=== PATIENT | male | born 1990 | race Caucasian/White ===

== ENCOUNTER 2020-11-03 08:58 | Emergency (ER) | payer SELFPAY ==
[2020-11-03] MEDS ORDERED: NA CHLORIDE 0.9% 1,000 ML ONE ×2 (09:48→11:33)
[2020-11-03] MEDS ORDERED: KETOROLAC 30 MG/ML INJ ONE (09:48)
[2020-11-03 10:04] LABS: Absolute Lymphocytes (CBC) 1.8 K/uL (0.7-4.9); Basophils % 0.5 % (0-1.3); Hematocrit 42.4 % (39.6-49.0); Lymphocytes % 13.2 % (15.3-44.8); MPV 8.4 fL (7.6-11.3); RBC Red Blood Cell Count 4.66 M/uL (4.33-5.43)
[2020-11-03 10:22] LABS: ALT/SGPT 30 U/L (12-78); AST/SGOT 28 U/L (15-37); Albumin 4.1 g/dL (3.4-5.0); Alkaline Phosphatase 94 U/L (45-117); BUN Blood Urea Nitrogen 7 mg/dL (7-18); Bicarbonate 25 mmol/L (21-32); Bilirubin Direct 0.2 mg/dL (0-0.2); Glucose Level 87 mg/dL (74-106); Potassium 3.8 mmol/L (3.5-5.1); Protein, Total 7.7 g/dL (6.4-8.2); Sodium Level 138 mmol/L (136-145); Troponin (Emerg Dept Use Only) < 0.02 ng/mL (0.0-0.045)
--- NOTE | 2020-11-03 10:47 | RAD REPORT ---
EXAM DESCRIPTION: Pamela Single View11/03/2020 9:36 am CLINICAL HISTORY: Chest pain COMPARISON: 2014 FINDINGS: Left lung base is not entirely included in the field of view and is not evaluated. The visualized lungs appear clear of acute infiltrate. The heart is normal size IMPRESSION: No acute abnormalities displayed
--- NOTE | 2020-11-03 10:48 | RAD REPORT ---
EXAM DESCRIPTION: Jung Lopez Left11/03/2020 9:36 am CLINICAL HISTORY: Left leg pain status post injury FINDINGS: No fracture is seen
--- NOTE | 2020-11-03 10:49 | RAD REPORT ---
EXAM DESCRIPTION: RAD - Ankle Left 3 View -11/03/2020 9:36 am CLINICAL HISTORY: Left ankle pain status post injury FINDINGS: Small bony density between lateral malleolus and talus probably chronic. No acute fracture or dislocation is suspected. Lateral soft tissue swelling
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
[2020-11-03 12:50] VITALS: TEMP 98.3
[2020-11-03 12:54] VITALS: BP 122/84; O2SAT 100
--- NOTE | 2020-11-05 08:26 | EKG ---
Test Date: 2020-11-03 Test Time: 09:54:53 Warehouse Specialist: NALDO MEASUREMENT RESULTS: Intervals: Rate: 83 ME: 112 QRSD: 92 QT: 358 QTc: 420 Yancey: P: 58 ME: 112 QRS: 74 T: 64 INTERPRETIVE STATEMENTS: Normal sinus rhythm Normal ECG No previous ECG available for comparison Electronically Signed On 11-05-20 08:24:13 CDT by Jase Romo
== END 2020-11-03 12:41 | disposition home or self-care (01) ==
LOC: ER 08:58
DX: S93.402A Sprain of unspecified ligament of left ankle, initial encounter (principal); S20.212A Contusion of left front wall of thorax, initial encounter; V47.5XXA Car driver injured in collision with fixed or stationary object in traffic accident, initial encounter
CPT/HCPCS: 36415; 71045; 80048; 80076; 84484; 85025; 93005; 96361; 96374; 99284; J7030

== ENCOUNTER 2022-09-26 17:03 | Emergency (ER) | payer OTHER, SELFPAY ==
[2022-09-26 17:45] LABS: Absolute Lymphocytes (CBC) 2.2 K/uL (0.7-4.9); Hematocrit 44.3 % (39.6-49.0); Lymphocytes % 18.9 % (15.3-44.8); MCV 88.2 fL (80-100); MPV 8.6 fL (7.6-11.3); RBC Red Blood Cell Count 5.02 M/uL (4.33-5.43)
[2022-09-26 18:00] LABS: Albumin 3.7 g/dL (3.4-5.0); Bilirubin Total 0.4 mg/dL (0.2-1.0); Potassium 3.8 mEq/L (3.5-5.1); Protein, Total 7.4 g/dL (6.4-8.2)
[2022-09-26] MEDS ORDERED: NA CHLORIDE 0.9% 1,000 ML ONE (18:02)
[2022-09-26] MEDS ORDERED: TDAP (DIPHTH,PERTUSS(ACELL),TET VAC) 0.5 ML VIAL IMVAC ONE (18:02)
[2022-09-26] MEDS ORDERED: MORPHINE 4 MG/ML SYR ONE (18:02)
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
[2022-09-26 18:48] VITALS: TEMP 97
[2022-09-26 18:50] VITALS: BP 130/86; O2SAT 98
== END 2022-09-26 18:41 | disposition home or self-care (01) ==
LOC: ER 17:03
DX: S22.31XA Fracture of one rib, right side, initial encounter for closed fracture (principal); V49.49XA Driver injured in collision with other motor vehicles in traffic accident, initial encounter
CPT/HCPCS: 85025; 36415; 80053; 70450; 72125; 71260; 74177; 73060; 96372; 96374; 99284; Q9967; J7030

== ENCOUNTER 2022-09-30 15:51 | Emergency (ER) | payer SELFPAY ==
[2022-09-30] MEDS ORDERED: MORPHINE 4 MG/ML SYR ONE (16:11)
[2022-09-30] MEDS ORDERED: KETOROLAC 30 MG/ML INJ ONE (16:12)
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
[2022-09-30] MEDS ORDERED: APIXABAN 5 MG TABLET ONE (18:32)
[2022-09-30 19:01] VITALS: TEMP 99.1
[2022-09-30 19:04] VITALS: BP 120/81; O2SAT 100
== END 2022-09-30 18:56 | disposition home or self-care (01) ==
LOC: ER 15:51
DX: I82.622 Acute embolism and thrombosis of deep veins of left upper extremity (principal); I82.C12 Acute embolism and thrombosis of left internal jugular vein
CPT/HCPCS: 70498; 73202; 93971; 96372; 99285; Q9967